=== PATIENT | male | born 1990 | race Caucasian/White ===

== ENCOUNTER 2021-11-17 03:57 | Emergency (ER) | payer SELFPAY ==
[~2021-11-17] VITALS: Ht 177.8 cm; Wt 81.6 kg
[2021-11-17] MEDS ORDERED: IV NORMAL SALINE 500 ML BAG IV ONE (04:15)
--- NOTE | 2021-11-17 04:18 | NUR ---
pt arrived by rescue, etoh. pt awake alert able to speak in complete sentences.
[2021-11-17 04:21] LABS: HEMATOCRIT 44.8 % (36.7-47.1); PLATELET COUNT (AUTO) 351 K/uL (152-348)
[2021-11-17 04:38] LABS: ACETAMINOPHEN 78.3 ug/mL (10-30); CREATININE 0.8 mg/dL (0.6-1.3); POTASSIUM 3.3 mmol/L (3.5-5.1); TOTAL PROTEIN, SERUM 6.8 g/dL (6.4-8.2)
--- NOTE | 2021-11-17 06:37 | NUR ---
PT TAKEN TO CT.
--- NOTE | 2021-11-17 06:48 | NUR ---
PT RETURNED FROM CT.
[2021-11-17] MEDS ORDERED: IV NS 1000 ML 1,000 ML IV ONE (08:00)
--- NOTE | 2021-11-17 08:01 | NUR ---
Patient urianted in a bedside commode. He is awake but very drowsy and his speech is somehwhat unclear. He went back to bed and is sleeping now. vital signs stable
[2021-11-17 08:39] LABS: *AMPHETAMINE, URINE NEGATIVE (NEGATIVE); *CANNABINOID, URINE NEGATIVE (NEGATIVE); *COCCAINE, URINE POSITIVE (NEGATIVE); *OPIATE, URINE POSITIVE (NEGATIVE); *PHENCYCLIDINE SCREEN,URINE NEGATIVE (NEGATIVE)
--- NOTE | 2021-11-17 12:00 | NUR ---
Pt removed his saline lock, cath noted to be intact, gauze drsg placed to site.
--- NOTE | 2021-11-17 12:15 | NUR ---
Note deannajovita in EDM - 11/17/21 at 1221 by YARIEL Pt seen walking out of the ER, pt's mother was waiting for him in the ER waiting room. Pt A/O x 3 and ambulated with steady gait. Pt explained to the pt and his mother that the poison control and recommend repeat blood work in 2 hrs. Pt declined and stated he wanted to go home. Pt's mother stated she will drive the pt home and stay with him. Stressed return to ER for worsening s/s. Also notified mother to call poison control for follow up/concerns.
--- NOTE | 2021-11-17 12:15 | NUR ---
Pt seen walking out of the ER, pt's mother was waiting for him in the ER waiting room. Pt A/O x 3 and ambulated with steady gait. I explained to the pt and his mother that the poison control and recommend repeat blood work. Pt declined and stated he wanted to go home. Pt's mother stated she will drive the pt home and stay with him. Stressed return to ER for worsening s/s. Also notified mother to call poison control for follow up/concerns.
== END 2021-11-17 12:23 | disposition left against medical advice (07) ==
LOC: ER 04:00
DX: T39.1X1A Poisoning by 4-Aminophenol derivatives, accidental (unintentional), initial encounter (principal); Y92.89 Other specified places as the place of occurrence of the external cause
CPT/HCPCS: 36415; 70030-TC; 70450; 85025; 93005; A4663; G0480; J7030

== ENCOUNTER 2022-01-04 15:24 | Emergency (ER) | payer SELFPAY ==
[~2022-01-04] VITALS: Ht 177.8 cm; Wt 79.4 kg
[2022-01-04 16:22] LABS: HEMATOCRIT 41.6 % (36.7-47.1); MEAN CORPUSCULAR HEMOGLOBIN 30.7 uug (23.8-33.4); MEAN CORPUSCULAR VOLUME 90.5 fL (73.0-96.2); PLATELET COUNT (AUTO) 365 K/uL (152-348)
[2022-01-04] MEDS ORDERED: LORAZEPAM 2 MG/1 ML VIAL IM ONE ×2 (16:30→19:30)
[2022-01-04 16:31] LABS: CARBON DIOXIDE 24 mmol/L (21-32); CHLORIDE 105 mmol/L (98-107); CREATININE 1.1 mg/dL (0.6-1.3); GLUCOSE 95 mg/dL (74-106); POTASSIUM 3.8 mmol/L (3.5-5.1); UREA NITROGEN, BLOOD 13 mg/dL (7-18)
[2022-01-04 16:36] LABS: *BILIRUBIN,URIN NEGATIVE (NEGATIVE); *BLOOD, URINE NEGATIVE (NEGATIVE); *CLARITY,URINE CLEAR (CLEAR); *COLOR,URINE YELLOW (YELLOW); *KETONES,URINE 2+ (NEGATIVE); *UROBILINOGEN,URINE 0.2 E.U./dl (NORMAL); LEUKOCYTE ESTERASE ,URINE NEGATIVE (NEGATIVE); NITRITE, URINE NEGATIVE (NEGATIVE); UGLUCOSE NEGATIVE (NEGATIVE)
[2022-01-04 16:36] LABS: ALANINE AMINOTRANSFERASE 31 U/L (16-63); ALKALINE PHOSPHATASE 99 U/L (50-136); ASPARTATE AMINOTRANSFERASE 22 U/L (15-37); BILIRUBIN,DIRECT 0.2 mg/dL (0.0-0.2); BILIRUBIN,TOTAL 1.1 mg/dL (0.2-1.0); TOTAL PROTEIN, SERUM 7.5 g/dL (6.4-8.2)
[2022-01-04] MEDS ORDERED: LORAZEPAM 2 MG/1 ML VIAL ONE ×2 (16:37→19:42)
[2022-01-04 16:39] LABS: ETHANOL < 3 MG/DL (0-0)
[2022-01-04 16:40] LABS: ACETAMINOPHEN < 2.0 ug/mL (10-30)
--- NOTE | 2022-01-04 16:45 | NUR ---
pt endorses SI, no specific plan, denies HI, auditory and visual hallucinations. Pt denies physical complaints
[2022-01-04 16:54] LABS: *AMPHETAMINE, URINE NEGATIVE (NEGATIVE); *CANNABINOID, URINE NEGATIVE (NEGATIVE); *COCCAINE, URINE NEGATIVE (NEGATIVE); *OPIATE, URINE POSITIVE (NEGATIVE); *PHENCYCLIDINE SCREEN,URINE NEGATIVE (NEGATIVE)
--- NOTE | 2022-01-04 17:15 | NUR ---
contacted Nitza for evaluation. She stated she's coming from [place] and has to go to [facility]
--- NOTE | 2022-01-04 17:19 | NUR ---
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 gave pt apple juice and crackers. ordered vegetarian dinner tray
--- NOTE | 2022-01-04 17:50 | NUR ---
Gave pt dinner tray
--- NOTE | 2022-01-04 18:44 | NUR ---
pt is sitting on a chair, restless
--- NOTE | 2022-01-04 18:52 | NUR ---
pt stated that he's "feeling better"
--- NOTE | 2022-01-04 19:10 | NUR ---
pt resting in bed. waiting for pinky for psych evaluation.
--- NOTE | 2022-01-04 20:36 | NUR ---
[facility] crisis nurse at bedside for psych evaluation.
--- NOTE | 2022-01-04 22:15 | NUR ---
Maria C from [facility] intake called requesting for insurance information to be faxed . Will fax info when it becomes available.
--- NOTE | 2022-01-05 02:25 | NUR ---
Elis from [facility] intake called back to inquire for insurance. She states we can contact her at once insurance info is obtain.
--- NOTE | 2022-01-05 05:54 | NUR ---
Dr Mario gave verbal order for Ativan 1mg IM.
[2022-01-05] MEDS ORDERED: LORAZEPAM 2 MG/1 ML VIAL IM ONE (06:00)
[2022-01-05] MEDS ORDERED: LORAZEPAM 2 MG/1 ML VIAL ONE (06:07)
--- NOTE | 2022-01-05 09:05 | NUR ---
Gave pt breakfast tray. Gave pt d/c instructions, pt verbalized understanding. Pt will go to [facility] directly.
[2022-01-05 09:32] VITALS: BP 110/80
== END 2022-01-05 09:33 | disposition home or self-care (01) ==
LOC: ER 15:27
DX: F32.A Depression, unspecified (principal); R45.851 Suicidal ideations; Z91.51 Personal history of suicidal behavior; Z87.820 Personal history of traumatic brain injury
CPT/HCPCS: 36415; 80048; 80076; 80299; 80307; 80320; 81003; 84443; 85025; 87426; 96372 ×2; 99285; J2060 ×3; G0480